=== PATIENT | male | born 1985 | race Caucasian/White ===

== ENCOUNTER 2018-01-21 23:09 | Emergency (ER) | payer BC ==
[~2018-01-21] VITALS: Ht 175.3 cm; Wt 63.8 kg
[2018-01-22 01:07] LABS: HEMOGLOBIN ISTAT 13.6 gm/dL
--- NOTE | 2018-01-22 01:14 | PHYS DOC ---
Past History Past Medical History: Anxiety, Depression, Diabetes Past Surgical History: No Surgical History Alcohol Use: None Drug Use: Marijuana, Opiates Adult General Chief Complaint Chief Complaint: FACE PROBLEM HPI HPI 32-year-old male with a history of anxiety and depression now presents to the emergency department complaining of left-sided facial tingling over the last day. He has no weakness visual speech strength or coordination changes. His gait is baseline. Patient has no other complaints. He denies cocaine or methamphetamine abuse but mentions that he uses narcotics daily, which she buys on the street. No history of intracranial abnormality. He is anxious about the tingling. Denies earache or facial swelling. No other complaints Review of Systems Review of Systems Constitutional: Denies fever or chills [] Eyes: Denies change in visual acuity, redness, or eye pain [] HENT: Denies nasal congestion or sore throat [] Respiratory: Denies cough or shortness of breath [] Cardiovascular: No additional information not addressed in HPI [] GI: Denies abdominal pain, nausea, vomiting, bloody stools or diarrhea [] : Denies dysuria or hematuria [] Musculoskeletal: Denies back pain or joint pain [] Integument: Denies rash or skin lesions [] Neurologic: Denies headache, focal weakness or sensory changes [] Endocrine: Denies polyuria or polydipsia [] All other systems were reviewed and found to be within normal limits, except as documented in this note. Physical Exam Physical Exam Well-appearing patient no acute distress. Completely benign exam including intact cranial nerves and a normal full neurologic exam. Patient does appear to have some anxiety especially regarding his medical condition. Constitutional: Well developed, well nourished, no acute distress, non-toxic appearance. [] HENT: Normocephalic, atraumatic, bilateral external ears normal, oropharynx moist, no oral exudates, nose normal. [] Eyes: PERRLA, EOMI, conjunctiva normal, no discharge. [] Neck: Normal range of motion, no tenderness, supple, no stridor. [] Cardiovascular:Heart rate regular rhythm, no murmur [] Lungs & Thorax: Bilateral breath sounds clear to auscultation [] Abdomen: Bowel sounds normal, soft, no tenderness, no masses, no pulsatile masses. [] Skin: Warm, dry, no erythema, no rash. [] Back: No tenderness, no CVA tenderness. [] Extremities: No tenderness, no cyanosis, no clubbing, ROM intact, no edema. [] Neurologic: Alert and oriented X 3, normal motor function, normal sensory function, no focal deficits noted. [] Psychologic: Affect mildly anxious, judgement normal, mood normal. [] Current Patient Data Vital Signs Vital Signs Date Time Temp Pulse Resp B/P (MAP) Pulse Ox O2 Delivery O2 Flow Rate FiO2 01/21/18 23:10 97.5 79 14 98 Room Air Lab Results Laboratory Tests Test 01/22/18 01:03 POC Hemoglobin 13.6 gm/dL POC Hematocrit 40 % POC Sodium 141 mmol/L (135-145) POC Potassium 4.0 mmol/L (3.5-5.0) POC Chloride 104 mmol/L (98-110) POC Total CO2 27 mmol/L (23-32) Anion Gap 16 mmol/L (6-14) H POC Blood Urea Nitrogen 21 mg/dL (8-26) POC Creatinine 0.8 mg/dL (0.5-1.4) Glucose Level 91 mg/dL (60-99) POC Ionized Calcium (Maryjane) 1.17 mmol/L (1.13-1.32) EKG EKG [] Radiology/Procedures Radiology/Procedures [] Course & Med Decision Making Course & Med Decision Making Pertinent Labs and Imaging studies reviewed. (See chart for details) Signs and symptoms consistent with subjective paresthesias. Patient's sensation is intact and his neurologic exam is benign. He admits to daily narcotic drug abuse. Denies other drugs. Basic metabolic panel unremarkable and CT of the head benign. Patient unwilling to provide urine for a drug screen. No further workup or treatment is indicated at this time. He has no evidence of a psychiatric or medical emergency. Patient agrees with outpatient follow-up and strict return precautions given [] Dragon Disclaimer Dragon Disclaimer This electronic medical record was generated, in whole or in part, using a voice recognition dictation system. Departure Departure: Impression: Primary Impression: Facial paresthesia Additional Impressions: Anxiety about health Narcotic abuse Disposition: HOME, SELF-CARE Condition: GOOD Additional Instructions: You've been experiencing facial paresthesias which means an alteration in sensation. This is a nonspecific finding and a CAT scan of your head was unremarkable today. Your laboratory workup was also unremarkable. It is clear that you've also been experiencing anxiety regarding your health. Follow up with your doctor to determine whether treatment for management of anxiety might be appropriate for you. Clearly any medical professional would recommend that you not abuse narcotics or other drugs. Be aware that even a single use of illicit drugs could result in or permanent disability. No further evaluation or treatment is indicated at this time but it is appropriate for you to follow up with your doctor tomorrow. Return to the emergency Department immediately for new severe or worsening symptoms Problem Qualifiers MELINA COUGHLIN MD January 22, 2018 01:14
--- NOTE | 2018-01-22 01:25 | RAD ---
CT Head W/O Contrast: History: LEFT SIDED FACIAL/NECK AND HEAD NUMBNESS/TINGLING
NO PREVIOUS FOR COMPARISON Comparison: none Axial images were obtained without contrast. The joya and white matter appears normal and symmetrical for the patients age. There is no mass effect, extraaxial fluid collections or hydrocephalus. There is no gross bleed. There is no focal loss of joya-white matter distinction to suggest acute ischemia, i.e. stroke. Impression: No acute findings. RS Compliance Statement: One or more of the following individualized dose reduction techniques were utilized for this examination: 1. Automated exposure control 2. Adjustment of the mA and/or kV according to patient size 3. Use of iterative reconstruction technique Electronically signed by: Kayden Prieto III, MD (01/22/2018 1:21 AM) [id number]
[2018-01-22 01:55] VITALS: BP 111/61
== END 2018-01-22 01:58 | disposition home or self-care (01) ==
LOC: ER 23:09
DX: R20.2 Paresthesia of skin (principal); F41.9 Anxiety disorder, unspecified; F11.10 Opioid abuse, uncomplicated; F12.10 Cannabis abuse, uncomplicated; E11.9 Type 2 diabetes mellitus without complications; F32.9 Major depressive disorder, single episode, unspecified
CPT/HCPCS: 36415; 70450; 80047; 85014; 85018; 99284; 99285-25

== ENCOUNTER 2021-11-05 06:55 | Emergency (ER) | payer BC, MEDICAID ==
[~2021-11-05] VITALS: Ht 172.7 cm; Wt 62.0 kg
[2021-11-05 07:05] VITALS: BP 105/70
--- NOTE | 2021-11-05 07:27 | PHYS DOC ---
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 Patient states he was taking street fentanyl pills yesterday or the day before. He is now fidgety, nauseous, irritable. He states a willingness to go to a treatment facility. He has no other complaints this time. Review of Systems: Review of Systems: Constitutional: Denies fever or chills. Restless, fidgeting. Eyes: Denies change in visual acuity HENT: Denies nasal congestion or sore throat Respiratory: Denies cough or shortness of breath Cardiovascular: Denies chest pain or edema GI: Denies abdominal pain, nausea, vomiting, bloody stools or diarrhea : Denies dysuria Musculoskeletal: Denies back pain or joint pain Integument: Denies rash Neurologic: Denies headache, focal weakness or sensory changes Endocrine: Denies polyuria or polydipsia Lymphatic: Denies swollen glands Psychiatric: anxiety Current Medications: Current Meds: Current Medications Medications (Trade) Dose Ordered Sig/Howard Start Time Stop Time Status Last Admin Dose Admin Clonidine HCl (Catapres) 0.1 mg 1X ONCE 11/05/21 07:30 11/05/21 07:31 UNV Diphenhydramine HCl (Benadryl) 25 mg 1X ONCE 11/05/21 07:30 11/05/21 07:31 UNV Lorazepam (Ativan) 1 mg 1X ONCE 11/05/21 07:30 11/05/21 07:31 UNV Ondansetron HCl (Zofran Odt) 4 mg 1X ONCE 11/05/21 07:30 11/05/21 07:31 UNV Allergies: Allergies: Allergies Coded Allergies Type Severity Reaction Last Updated Verified No Known Drug Allergies 11/05/21 No Physical Exam: PE: Constitutional: Well developed, well nourished, restless, fidgeting, no acute distress, non-toxic appearance. [] HENT: Normocephalic, atraumatic, bilateral external ears normal, oropharynx moist, no oral exudates, nose normal. [] Eyes: PERRLA, EOMI, conjunctiva normal, no discharge. [] Neck: Normal range of motion, no tenderness, supple, no stridor. [] Cardiovascular: Heart rate regular rhythm, no murmur [] Lungs & Thorax: Bilateral breath sounds clear to auscultation [] Abdomen: Bowel sounds normal, soft, no tenderness, no masses, no pulsatile masses. [] Skin: Warm, dry, no erythema, no rash. [] Back: No tenderness, no CVA tenderness. [] Extremities: No tenderness, no cyanosis, no clubbing, ROM intact, no edema. [] Neurologic: Alert and oriented X 3, normal motor function, normal sensory functi on, no focal deficits noted. [] Psychologic: Affect normal, judgement normal, mood anxious. [] Current Patient Data: Vital Signs: Vital Signs Date Time Temp Pulse Resp B/P (MAP) Pulse Ox O2 Delivery O2 Flow Rate FiO2 11/05/21 07:05 98.8 54 22 105/70 (82) 95 EKG: EKG: [] Radiology/Procedures: Radiology/Procedures: [] Heart Score: C/O Chest Pain: N/A Risk Factors: Risk Factors: DM, Current or recent (<one month) smoker, HTN, HLP, family history of CAD, obesity. Risk Scores: Score 0 - 3: 2.5% MACE over next 6 weeks - Discharge Home Score 4 - 6: 20.3% MACE over next 6 weeks - Admit for Clinical Observation Score 7 - 10: 72.7% MACE over next 6 weeks - Early Invasive Strategies Course & Med Decision Making: Course & Med Decision Making Pertinent Labs and Imaging studies reviewed. (See chart for details) The patient's blood pressure is currently too low for clonidine. We will hold this for now. I will treat him with Zofran, Benadryl, Ativan. The patient's urinalysis significant for opiates and methamphetamines. The patient left AMA prior to behavioral health evaluation. [] Ervin Disclaimer: Ervin Disclaimer: This electronic medical record was generated, in whole or in part, using a voice recognition dictation system. Departure Departure: Impression: Primary Impression: Methamphetamine abuse Additional Impression: Opiate abuse, episodic Disposition: LEFT AWOL/ELOPED Condition: STABLE Referrals: PCP,ANNELISE (PCP) DAWSON ESTRADA DO Nov 05, 2021 07:27
[2021-11-05] MEDS ORDERED: LORazepam 1 MG TABLET PO ONE (07:30)
[2021-11-05] MEDS ORDERED: diphenhydrAMINE HCL 25 MG CAPSULE PO ONE (07:30)
[2021-11-05] MEDS ORDERED: ONDANSETRON ODT 4 MG TAB.RAPDIS PO ONE (07:30)
[2021-11-05] MEDS ORDERED: cloNIDine HCL 0.1 MG TABLET PO ONE (07:30)
[2021-11-05 08:02] LABS: BARBITURATES NEG (NEG); BENZODIAZEPINES NEG (NEG); CANNABINOIDS NEG (NEG); COCAINE NEG (NEG); METHADONE NEG (NEG); OPIATES POS (NEG); PHENCYCLIDINE NEG (NEG)
[2021-11-05 08:03] LABS: AMPHETAMINE/METHAMPHETAMINE POS (NEG)
[2021-11-05 08:16] LABS: CLARITY,URINE CLEAR; COLOR,URINE YELLOW; GLUCOSE,URINE NEG (NEG)
[2021-11-05 08:17] LABS: BACTERIA,URINE 0 /HPF (0-FEW); NITRITE,URINE NEG (NEG); RBC,URINE OCC /HPF (0-2); UROBILINOGEN,URINE 0.2 mg/dL (0.2 mg/dL)
[2021-11-05 08:18] LABS: SQUAMOUS EPITHELIAL CELL,UR OCC /LPF
== END 2021-11-05 09:40 | disposition left against medical advice (07) ==
LOC: ER 06:55
DX: F11.10 Opioid abuse, uncomplicated (principal); F15.10 Other stimulant abuse, uncomplicated; F41.9 Anxiety disorder, unspecified; F32.9 Major depressive disorder, single episode, unspecified; E11.9 Type 2 diabetes mellitus without complications; F12.10 Cannabis abuse, uncomplicated
CPT/HCPCS: 36415; 80307; 81001; 99284; Q0162; Q0163